=== PATIENT | female | born 1995 | race Caucasian/White ===

== ENCOUNTER 2020-04-05 13:04 | Outpatient (CLI) | payer OTHER ==
[2020-04-05 17:07] LABS: ALBUMIN 4.7 g/dL (3.2-5.5); ALBUMIN/GLOBULIN RATIO 1.4 (1.0-2.2); BILIRUBIN,TOTAL 0.8 mg/dL (0.2-1.0); CALCIUM 9.8 mg/dL (8.5-10.3); CREATININE 0.9 mg/dL (0.4-1.0)
[2020-04-05 17:12] LABS: HGB - HEMOGLOBIN 12.3 g/dL (12.0-16.0); MEAN CORPUSCULAR HEMOGLOBIN 28.9 pg (27.0-31.0); MEAN CORPUSCULAR HGB CONC 31.6 g/dL (32.0-36.0); MEAN CORPUSCULAR VOLUME 91.3 fL (81.0-99.0); MEAN PLATELET VOLUME 10.8 fL (7.9-10.8); RED BLOOD COUNT 4.26 10^6/uL (4.20-5.40); RED CELL DISTRIBUTION WIDTH 13.2 % (12.0-15.0); WHITE BLOOD COUNT 6.2 x10^3/uL (4.8-10.8)
[2020-04-05 17:31] LABS: PROLACTIN 14.29 ng/mL
[2020-04-05 17:54] LABS: FOLLICLE STIMULATING HORMONE 13.13 mIU/mL
[2020-04-05 21:01] LABS: HEMOGLOBIN A1c% 5.4 % (4.27-6.07)
[2020-04-08 04:11] LABS: ESTRADIOL 47 pg/mL
== END 2020-04-05 13:05 | disposition home or self-care (01) ==
LOC: LAB.S 13:04
PROVIDERS: ATTEND Obstetrics & Gynecology
DX: Z31.69 Encounter for other general counseling and advice on procreation (principal); N64.52 Nipple discharge; E28.2 Polycystic ovarian syndrome
CPT/HCPCS: 36415; 80053; 82306; 82670; 83001; 83036; 84146; 84403; 84443; 85027; 86762; 86787

== ENCOUNTER 2020-04-15 16:26 | Outpatient (CLI) | payer OTHER ==
--- NOTE | 2020-04-16 16:50 | Ultrasound Report ---
PROCEDURE: Pelvic w/Transvaginal INDICATIONS: POLYCYSTIC OVARIAN SYNDROME TECHNIQUE: Real-time scanning was performed of the pelvic organs, with image documentation. Additional endovagi nal scanning was necessary due to incomplete visualization of the adnexal and endometrial structures by transabdominal scanning. COMPARISON: Pelvic ultrasound 06/18/2013 FINDINGS: Transabdominal scanning: Limited scanning through the kidneys shows no hydronephrosis. No pathologi c free abdominal or pelvic fluid. Endovaginal scanning: Uterus: Uterus is normal in size at 7.5 x 3.0 x 4.2 cm. The endometrium measures 7 mm on the left a nd 10 mm on the right. Ovaries: Right ovary measures 3.0 x 1.3 x 2.5 cm, volume 5.1 cc. Left ovary measures 2.3 x 2.7 x 3.1 cm, volume 10.3 cc. Bilateral prominent follicles. IMPRESSION: 1. Arcuate uterus. 2. No ovarian cysts are identified. Reviewed by: Shital Chi MD on 04/16/2020 4:49 PM PDT Approved by: Shital Chi MD on 04/16/2020 4:49 PM PDT Station ID: [id number]
== END 2020-04-15 16:27 | disposition home or self-care (01) ==
LOC: DI 16:26
PROVIDERS: ATTEND Obstetrics & Gynecology
DX: E28.2 Polycystic ovarian syndrome (principal); Q51.810 Arcuate uterus
CPT/HCPCS: 76830; 76856

== ENCOUNTER 2021-05-25 17:30 | Outpatient (CLI) | payer OTHER | END 2021-05-25 17:31 | disposition home or self-care (01) | LOC: LAB 17:30 | PROVIDERS: ATTEND Obstetrics & Gynecology | DX: Z34.00 Encounter for supervision of normal first pregnancy, unspecified trimester (principal) | CPT/HCPCS: 81599; 82105 ==

== ENCOUNTER 2021-06-23 17:33 | Outpatient (CLI) | payer OTHER ==
--- NOTE | 2021-06-24 13:17 | Ultrasound Report ---
PROCEDURE: OB Detailed Eval INDICATIONS: SUPERVISION OF NORMAL OUTSIDE/PRIOR DATING DATA: Last menstrual period (LMP): 02/01/21. LMP-based estimated date of delivery (KIMBERLY): 11/08/21. First dating scan (date and location): 04/30/21. Estimated date of delivery (KIMBERLY) from first dating scan: 11/01/21. The below data below was generated using the ultrasound derived KIMBERLY of 11/01/21. TECHNIQUE: Real-time scanning was performed of the fetus, with image documentation and biometric measurements. COMPARISON: None. FINDINGS: General: A single living intrauterine gestation is present. Presentation: Breech Placenta: Placental position is posterior, without previa. Amniotic fluid index: 13.1 cm, within normal limits for gestational age. Largest pocket 4.5 cm. heart rate: 150 beats per minute. Maternal cervical canal: 3.8 cm long; normal length is 2.5 cm or more. biometrics: Biparietal diameter: 4.5 cm, 19 weeks 5 days Head circumference: 17.3 cm, 19 weeks 6 days Abdominal circumference: 16.4 cm, 21 weeks 3 days Femur length: 3.3 cm, 20 weeks 3 days Estimated gestational age from initial scan: 21 weeks 2 days Composite gestational age from present scan: 20 weeks 2 days Estimated weight and percentile: 378 g, 21st percentile Measurement variability in biometric dating: +/- 10 days from 12-20 weeks gestation, +/- 2 weeks from 20-30 weeks gestation, +/- 3 weeks at 30 weeks gestation or later. Anatomic survey: Neuro: Ventricles are normal at less than 10 mm. Cisterna magna is normal at 3-11 mm. Cerebellum i s normal in size and morphology. Nuchal skin fold: Normal at less than 6 mm between 14 and 20 weeks gestational age. Face: Nose and lips, facial profile are normal. Spine: Not well seen. Heart: 4-chambered heart is present, with normal ventricular outflow tracts. Diaphragm: Diaphragm was not well visualized. Stomach: Left-sided stomach is present. Kidneys: Kidneys not well visualized. Cord: 3 vessel cord has orthotopic insertion. Bladder: Normal in size. Extremities: All 4 extremities are visualized. IMPRESSION: 1. Single living intrauterine in breech position demonstrating interval growth with estimat ed weight at the 21st percentile. 2. Limited anatomic survey with the spine, diaphragm, and kidneys not well seen due to fe otis position. A follow-up repeat study may be performed to 4 weeks for further evaluation if clinical ly indicated. Reviewed by: Matthew Umanzor MD on 06/24/2021 1:16 PM PST Approved by: Matthew Umanzor MD on 06/24/2021 1:16 PM [facility] Station ID: [id number]
== END 2021-06-23 17:34 | disposition home or self-care (01) ==
LOC: DI 17:33
PROVIDERS: ATTEND Obstetrics & Gynecology
DX: O32.1XX0 Maternal care for breech presentation, not applicable or unspecified (principal); Z3A.20 20 weeks gestation of pregnancy

== ENCOUNTER 2021-07-30 08:00 | Outpatient (CLI) | payer OTHER ==
[2021-07-30 07:49] LABS: HCT - HEMATOCRIT 32.5 % (37.0-47.0); HGB - HEMOGLOBIN 10.8 g/dL (12.0-16.0); MEAN CORPUSCULAR HEMOGLOBIN 30.7 pg (27.0-31.0); MEAN CORPUSCULAR HGB CONC 33.2 g/dL (32.0-36.0); MEAN CORPUSCULAR VOLUME 92.3 fL (81.0-99.0); MEAN PLATELET VOLUME 9.5 fL (7.9-10.8); RED BLOOD COUNT 3.52 10^6/uL (4.20-5.40); RED CELL DISTRIBUTION WIDTH 12.7 % (12.0-15.0); WHITE BLOOD COUNT 9.9 x10^3/uL (4.8-10.8)
== END 2021-07-30 23:59 ==
LOC: LAB 08:00
PROVIDERS: ATTEND Obstetrics & Gynecology
DX: Z34.00 Encounter for supervision of normal first pregnancy, unspecified trimester (principal)
CPT/HCPCS: 36415; 82950; 85027

== ENCOUNTER 2021-08-06 07:57 | Outpatient (CLI) | payer OTHER ==
[2021-08-06 08:28] LABS: GTT GLUCOSE,FASTING 86 mg/dL (70-100)
== END 2021-08-06 07:58 | disposition home or self-care (01) ==
LOC: LAB 07:57
PROVIDERS: ATTEND Obstetrics & Gynecology
DX: O99.810 Abnormal glucose complicating pregnancy (principal)
CPT/HCPCS: 36415; 82951; 82952

== ENCOUNTER 2021-09-10 16:47 | Outpatient (CLI) | payer OTHER ==
[2021-09-10 22:48] LABS: CHLAMYDIA TRACHOMATIS DNA NEGATIVE (NEGATIVE); NEISSERIA GONORRHOEAE DNA NEGATIVE (NEGATIVE); TRICHOMONAS VAGINALIS DNA NEGATIVE (NEGATIVE)
== END 2021-09-10 16:48 | disposition home or self-care (01) ==
LOC: LAB 16:47
PROVIDERS: ATTEND Obstetrics & Gynecology
DX: Z11.3 Encounter for screening for infections with a predominantly sexual mode of transmission (principal)
CPT/HCPCS: 87491; 87591; 87661

== ENCOUNTER 2021-11-04 12:18 | Inpatient (IN) | payer OTHER ==
[2021-11-04] MEDS ORDERED: MORPHINE 10 MG/ML VIAL IM PRN (12:31)
[2021-11-04] MEDS ORDERED: hydrOXYzine PAMOATE 25 MG CAPSULE PO PRN (12:31)
[2021-11-04] MEDS ORDERED: TERBUTALINE 1 MG/ML VIAL SUBQ ONE (12:40)
[2021-11-04] MEDS ORDERED: PROMETHAZINE INJ 25 MG in SODIUM CHLORIDE 0.9% 50 ML IV PRN (12:43)
[2021-11-04] MEDS ORDERED: PROMETHAZINE 25 MG/1 ML VIAL IM STA (12:55)
[2021-11-04] MEDS ORDERED: PROMETHAZINE 25 MG/1 ML VIAL ONE (12:59)
[2021-11-04] MEDS ORDERED: ACETAMINOPHEN 500 MG TABLET PO PRN (17:00)
[2021-11-04] MEDS ORDERED: diphenhydrAMINE INJ 50 MG/ML VIAL IVP PRN ×2 (17:00→18:32)
[2021-11-04] MEDS ORDERED: METHYLERGONOVINE 0.2 MG/ML VIAL IM PRN (17:00)
[2021-11-04] MEDS ORDERED: METOCLOPRAMIDE 10 MG TABLET PO PRN (17:00)
[2021-11-04] MEDS ORDERED: NIFEdipine 10 MG CAPSULE PO PRN (17:00)
[2021-11-04] MEDS ORDERED: ONDANSETRON 4 MG/2 ML VIAL IVP PRN ×2 (17:00→18:32)
[2021-11-04] MEDS ORDERED: CALCIUM CARBONATE CHEW 500 MG TABLET PO PRN (17:00)
[2021-11-04] MEDS ORDERED: miSOPROStoL 200 MCG TABLET BC PRN (17:00)
[2021-11-04] MEDS ORDERED: hydrALAZINE INJ 20 MG/ML VIAL IVP PRN ×2 (17:00)
[2021-11-04] MEDS ORDERED: OXYTOCIN 10 UNIT/ML VIAL IM PRN (17:00)
[2021-11-04] MEDS ORDERED: LABETALOL 20 MG/4 ML SYRINGE IVP PRN ×3 (17:00)
[2021-11-04] MEDS ORDERED: fentaNYL 100 MCG/2 ML VIAL IVP PRN (17:00)
[2021-11-04] MEDS ORDERED: miSOPROStoL 200 MCG TABLET PR PRN (17:00)
[2021-11-04] MEDS ORDERED: TERBUTALINE 1 MG/ML VIAL SUBQ PRN (17:00)
[2021-11-04] MEDS ORDERED: SODIUM CHLORIDE FLUSH 0.9% 10 ML SYRINGE IVP SCH (17:00)
[2021-11-04] MEDS ORDERED: ONDANSETRON ODT 4 MG TABLET PO PRN (17:00)
[2021-11-04] MEDS ORDERED: OXYTOCIN/SODIUM CHLORIDE 500 ML IV PRN (17:00)
[2021-11-04] MEDS ORDERED: NALBUPHINE 10 MG/ML AMP IVP PRN ×2 (17:00→18:32)
[2021-11-04] MEDS ORDERED: CARBOPROST TROMETHAMINE 250 MCG/ML AMP IM PRN (17:00)
[2021-11-04] MEDS ORDERED: SODIUM CHLORIDE FLUSH 0.9% 10 ML SYRINGE IVP PRN (17:00)
[2021-11-04] MEDS ORDERED: TRANEXAMIC ACID IN NACL 1,000 MG/100 ML BAG IV PRN (17:00)
[2021-11-04] MEDS ORDERED: LIDOCAINE-MPF 1% 30 ML VIAL ID PRN (17:00)
[2021-11-04] MEDS ORDERED: METOCLOPRAMIDE 10 MG/2 ML VIAL IVP PRN ×2 (17:00→18:32)
--- NOTE | 2021-11-04 17:04 | HISTORY & PHYSICAL EXAMINATION ---
Admit History - Visit Reason Visit Reason: Contractions - Mother's Labs Mother's Blood Type: positive: A Mother's RH: positive: Positive GBS: positive: Group B Step Negative - Other Maternal History Other Maternal History: ID: Patient is a 26 yo at 39+3 wga that presents as a DARA from [facility] as a transfer of care for pain management in labor. HPI: Patient was seen by [facility] until about 32 weeks at which times she transferred to [facility]. She presented to [facility] this am with intense contractions lasting as much as 3 minutes in duration. She was initially 1 cm at presentation to the center and then progressed to about 2 cm in several hours of observation. Her provider at [facility], Aixa ROBERSON, requested patient present to [facility] for therapeutic rest. Patient received IM morphine and phenergan and went to sleep. She woke up 4 hours later in significant pain. She requested admission for epidural placement in early labor. SVE was 4/C/0 at time of admission. PNC: LMP:02/01/2021 KIMBERLY BY LMP:11/08/2021 Initial U/S: FINAL KIMBERLY: (Initial US perfomed at [place]- awaiting records) A pos/Rubella IMMUNE VZV : Pending Genetic testing: Has completed cfDNA. Awaiting records release. AFP mildly elevated. Cleared for ONTD by [facility] FAS: 3VC, posterior, FAS CL 3.5, FAS Glucola 07/30/21 157 08/06/21 3 hour Gtt fasting 86, 1hour 157, 2hour 117, 3hour 82 Passed TDAP : given 08/12/2021 Influenza: April 2021 Covid: Pfizer two doses completed by February 2021 [facility] HSV: Denies Breast pump Rx: Rx given MOD: anticipate pp contraception: TBD Pap: September 2020 w/Aleksandr Clay; normal. No hx abnormals. Past Medical History: Codeine - hallucinations Asthma-when smoking Past Surgical History: Unremarkable Family History: Family History of a Hx of Hypertension for Father Legacy Family History Notes: Father: HTN No family history of asthma. 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 LABOR: Expectant management -Augmentation with pitocin or AROM as indicated PAIN: -Patient initially seen in triage for therapeutic rest. Has since worn off and patient is in marked discomfort -Epidural to be placed upon admission FWB: Vertex, Cat I tracing, GBS neg, well grown MOD: Anticipate Admit for in-patient care Meds/Allgy - Allergies Allergies/Adverse Reactions: Allergies Allergy/AdvReac Type Severity Reaction Status Date / Time codeine AdvReac Hallucinati Verified 11/04/21 15:59 ons Physical - Abdominal Exam Vital Signs: Temp Pulse Resp BP Pulse Ox 97.9 F 95 16 134/80 H 11/04/21 12:33 11/04/21 12:33 11/04/21 12:33 11/04/21 12:33
[2021-11-04] MEDS: LACTATED RINGERS 1,000 ML IV SCH ×2 (17:44→21:52)
[2021-11-04] MEDS ORDERED: LACTATED RINGERS 1,000 ML ONE (17:47)
[2021-11-04] MEDS ORDERED: ROPIVACAINE 0.2% 200 MG/100 ML BAG EP ONE (18:02)
[2021-11-04 18:25] LABS: BASOPHILS % (AUTO) 0.2 %; HCT - HEMATOCRIT 36.2 % (37.0-47.0); HGB - HEMOGLOBIN 12.6 g/dL (12.0-16.0); LYMPHOCYTES # (AUTO) 1.3 10^3/uL (1.5-3.5); LYMPHOCYTES % (AUTO) 9.2 %; MEAN CORPUSCULAR HEMOGLOBIN 31.5 pg (27.0-31.0); MEAN CORPUSCULAR HGB CONC 34.8 g/dL (32.0-36.0); MEAN CORPUSCULAR VOLUME 90.5 fL (81.0-99.0); MEAN PLATELET VOLUME 11.7 fL (7.9-10.8); MONOCYTES # (AUTO) 0.7 10^3/uL (0.0-1.0); MONOCYTES % (AUTO) 4.8 %; NEUTROPHILS # (AUTO) 12.1 10^3/uL (1.5-6.6); NEUTROPHILS % (AUTO) 84.9 %; PLT - PLATELET COUNT 222 10^3/uL (130-450); RED CELL DISTRIBUTION WIDTH 13.5 % (12.0-15.0); WHITE BLOOD COUNT 14.3 x10^3/uL (4.8-10.8)
[2021-11-04] MEDS ORDERED: NALOXONE 0.4 MG/ML VIAL IVP PRN (18:32)
[2021-11-04] MEDS ORDERED: ROPIVACAINE 0.2% 200 MG/100 ML BAG EP PRN (18:32)
[2021-11-04] MEDS ORDERED: ePHEDrine 50 MG/ML VIAL IVP PRN (18:32)
[2021-11-04 18:34] LABS: ALBUMIN 3.1 g/dL (3.2-5.5); ALBUMIN/GLOBULIN RATIO 0.7 (1.0-2.2); BILIRUBIN,TOTAL 0.6 mg/dL (0.2-1.0); CALCIUM 9.8 mg/dL (8.5-10.3); CREATININE 0.7 mg/dL (0.4-1.0); POTASSIUM 3.4 mmol/L (3.5-5.0); TOTAL PROTEIN 7.3 g/dL (6.7-8.2)
--- NOTE | 2021-11-04 18:35 | ANESTHESIA ---
Pre-Anesthesia VS, & Labs - Diagnosis term labor, IUP - Procedure Vital Signs: Temp Pulse Resp BP Pulse Ox 36.6 C 95 16 134/80 H 11/04/21 12:33 11/04/21 12:33 11/04/21 12:33 11/04/21 12:33 Height: 5 ft 4 in - NPO Last Fluid Intake: t/o day Last Food Intake: lunch - Is Patient ?: Yes - Lab Results Current Lab Results: Laboratory Tests 11/04/21 17:35: WBC 14.3 H, RBC 4.00 L, Hgb 12.6, Hct 36.2 L, MCV 90.5, MCH 31.5 H, MCHC 34.8, RDW 13.5, Plt Count 222, MPV 11.7 H, Neut # (Auto) 12.1 H, Lymph # (Auto) 1.3 L, [place] # (Auto) 0.7, Eos # (Auto) 0.0, Baso # (Auto) 0.0, Absolute Nucleated RBC 0.00, Nucleated RBC % 0.0 Lab results reviewed: Yes Fish Bones: 11/04/21 17:35 Home Medications and Allergies Active Medications Acetaminophen (Acetaminophen 500 Mg Tablet) 1,000 mg PO Q8H PRN PRN Reason: Pain or Fever > 38C (100.4F) Calcium Carbonate/Glycine (Calcium Carbonate Chew 500 Mg Tablet) 1,000 mg PO Q6HR PRN PRN Reason: Heartburn Carboprost Tromethamine (Carboprost Tromethamine 250 Mcg/Ml Amp) 250 mcg IM .ONCE PRN PRN Reason: Hemorrhage Diphenhydramine HCl (Diphenhydramine Inj 50 Mg/Ml Vial) 25 mg IVP Q6H PRN PRN Reason: Allergy Symptoms Fentanyl (Fentanyl 100 Mcg/2 Ml Vial) 50 mcg IVP Q1H PRN PRN Reason: Severe Pain (score 7-10) Hydralazine HCl (Hydralazine Inj 20 Mg/Ml Vial) 5 - 20 mg IVP Q20M PRN; Protocol PRN Reason: SBP> or= 160 OR DBP> or= 110 Hydralazine HCl (Hydralazine Inj 20 Mg/Ml Vial) 10 mg IVP .ONCE PRN; Protocol PRN Reason: SBP> or= 160 OR DBP> or= 110 Hydroxyzine Pamoate (Hydroxyzine Pamoate 25 Mg Capsule) 50 mg PO .ONCE PRN PRN Reason: Persistent Prodromal Labor Promethazine HCl 25 mg/ Sodium (Chloride) 51 mls @ 100 mls/hr IV Q6H PRN PRN Reason: Nausea / Vomiting Oxytocin/Sodium Chloride (Pitocin/Sodium Chloride) 500 mls @ 999 mls/hr IV PRN PRN; Protocol PRN Reason: POST- HEMORR PREVENTION Tranexamic Acid (Tranexamic 1,000 Mg/100ml-Nacl) 1,000 mg in 100 mls @ 600 mls/hr IV Q30M PRN PRN Reason: EBL >1200mL and within 3hr Lactated Ringer's (Lr) 1,000 mls @ 125 mls/hr IV .Q8H TRENT Labetalol HCl (Labetalol 20 Mg/4 Ml Syringe) 20 - 80 mg IVP Q10M PRN; Protocol PRN Reason: SBP> or= 160 OR DBP> or= 110 Labetalol HCl (Labetalol 20 Mg/4 Ml Syringe) 20 mg IVP .ONCE PRN; Protocol PRN Reason: SBP> or= 160 OR DBP> or= 110 Labetalol HCl (Labetalol 20 Mg/4 Ml Syringe) 20 - 40 mg IVP Q10M PRN; Protocol PRN Reason: SBP> or= 160 OR DBP> or= 110 Lidocaine HCl (Lidocaine-Mpf 1% 30 Ml Vial) 30 ml ID ONCE PRN PRN Reason: PERINEAL REPAIR Stop: 11/05/21 17:01 Methylergonovine Maleate (Methylergonovine 0.2 Mg/Ml Vial) 0.2 mg IM .ONCE PRN PRN Reason: Hemorrhage Metoclopramide HCl (Metoclopramide 10 Mg Tablet) 5 mg PO Q6HR PRN PRN Reason: Nausea / Vomiting Metoclopramide HCl (Metoclopramide 10 Mg/2 Ml Vial) 5 mg IVP Q6HR PRN PRN Reason: Nausea / Vomiting Misoprostol (Misoprostol 200 Mcg Tablet) 600 mcg BC .ONCE PRN PRN Reason: Hemorrhage Misoprostol (Misoprostol 200 Mcg Tablet) 800 mcg ID .ONCE PRN PRN Reason: Hemorrhage Morphine Sulfate (Morphine 10 Mg/Ml Vial) 10 mg IM .ONCE PRN PRN Reason: Persistent Prodromal Labor Last Admin: 11/04/21 13:02 Dose: 5 mg Nalbuphine HCl (Nalbuphine 10 Mg/Ml Amp) 2.5 mg IVP Q2HR PRN PRN Reason: ITCHING Nifedipine (Nifedipine 10 Mg Capsule) 10 - 20 mg PO Q20M PRN; Protocol PRN Reason: SBP> or= 160 OR DBP> or= 110 Ondansetron HCl (Ondansetron Odt 4 Mg Tablet) 4 mg PO Q4HR PRN PRN Reason: Nausea / Vomiting Ondansetron HCl (Ondansetron 4 Mg/2 Ml Vial) 4 mg IVP PRN PRN PRN Reason: Nausea / Vomiting Oxytocin (Oxytocin 10 Unit/Ml Vial) 10 unit IM .ONCE PRN PRN Reason: Step One if no IV access. Sodium Chloride (Sodium Chloride Flush 0.9% 10 Ml Syringe) 10 ml IVP PRN PRN PRN Reason: NEEDED PER PROVIDER ORDERS Sodium Chloride (Sodium Chloride Flush 0.9% 10 Ml Syringe) 10 ml IVP Q8H TRENT Terbutaline Sulfate (Terbutaline 1 Mg/Ml Vial) 0.25 mg SUBQ .ONCE PRN PRN Reason: Tachystole Allergies/Adverse Reactions: Allergies Allergy/AdvReac Type Severity Reaction Status Date / Time codeine AdvReac Hallucinati Verified 11/04/21 15:59 ons Anes History & Medical History - Anesthetic History Anesthesia Complications: reports: No previous complications Family history of Anesthesia Complications: Denies Family history of Malignant Hyperthermia: Denies - Medical History Cardiovascular: reports: None Pulmonary: reports: None Gastrointestinal: reports: None Urinary: reports: None Neuro: reports: None Musculoskeletal: reports: None Endocrine/Autoimmune: reports: None Smoking Status: Never smoker Psychosocial: reports: No issues indicated History of Cancer?: No - Surgical History Other Past Surgical History: wisdom teeth extraction Exam General: Alert, Oriented x3, Cooperative Dental: WNL Neck Mobility: Normal Mallampati classification: II Respiratory: No respiratory distress Cardiovascular: Regular rate Neurological: Normal speech Mental/Cognitive Status: Alert/Oriented X3, Normal for patient Cognitive Status: Within normal limits Plan Anesthesia Type: Epidural Consent for Procedure(s) Verified and Reviewed: Yes Code Status: Attempt Resuscitation ASA classification: 2-Mild systemic disease Is this case an emergency?: No
[2021-11-05] MEDS ORDERED: OXYTOCIN/SODIUM CHLORIDE 500 ML IV SCH (02:00)
--- NOTE | 2021-11-05 03:30 | DELIVERY NOTE ---
Delivery Note - Labor Labor: positive: Spontaneous - Delivery Method Delivery Method: positive: Spontaneous vaginal delivery - Presentation Presentation: positive: Vertex, Compound, BROOKS - left occiput anterior - Nuchal Cord Nuchal Cord: positive: Present - Laceration Laceration: positive: 2nd degree, Other (partial involvement of anal sphincter) - Suture Suture Type: positive: Vicryl Suture Size: positive: 2-0, 3-0 - Delivery Outcome Delivery Outcome: positive: Livebirth - Merino: positive: Placed in direct skin contact with mother, Stimulated, Warmed, [place] used sex: positive: Female : Apgars 8/9 - Cord Cord: positive: 3 vessels - Placenta Placenta: positive: Intact, Expressed - Estimated Blood Loss Estimated Blood Loss (in cc): 150 - Post Delivery Events Post Delivery Events: positive: No post delivery events - Delivery Comments (Free Text/Narrative) Delivery Comments (Free Text/Narrative): STAGE I: Patient is a 26 yo admitted at 39+3 wga in labor with desire for pain management. SVE at time of admission was 4.5/C/+1 per RN exam. GBS negative. Epidural placed at admission. Spontaneous rupture of membranes at 22:51, clear fluid. GBS negative, no indication for antibiotics. Cat I tracing throughout Stage I labor. Complete at 22:51. STAGE II: Patient pushed well form 23:18 to time of delivery at 01:58. Second stage pitocin was used to augment labor. delivered from BROOKS presentation with compound presentation of the posterior (left hand). Nuchal cord present, delivered through the cord. Cord was wrapped around the body and was unwrapped upon delivery. was delivered to maternal chest. Cord pulsations ceased and then cord was clamped x2 and cut. Apgars were 8/9, BW pending. STAGE III: Placenta delivered at 02:05 with manual expression. It was examined and found to be intact. Perineal laceration was 2nd degree midline with involvement of the anal sphincter but sphincter remained intact. The sphincter muscle was reinforced using 2-0 Vicryl with interupted sutures placed at the posterior, superior, and anterior positions. Rectal exam post repair showed absence of suture in the rectal vault. The remainder of the laceration was repaired with 3-0 Vicryl in the usual sterile fashion, in layers. Good hemostasis was noted. EBL 150 cc
[2021-11-05] MEDS ORDERED: SIMETHICONE CHEW 80 MG TABLET PO PRN (03:31)
[2021-11-05] MEDS ORDERED: HYDROCORTISONE 1% CREAM 28 GM TUBE PR PRN (03:31)
[2021-11-05] MEDS: IBUPROFEN 600 MG TABLET PO PRN ×3 (05:34→18:39)
[2021-11-05] MEDS: ACETAMINOPHEN 500 MG TABLET PO PRN ×2 (10:07→18:39)
[2021-11-05] MEDS: DOCUSATE SODIUM 100 MG CAPSULE PO PRN ×2 (10:07→23:11)
[2021-11-05] MEDS: LACTATED RINGERS 1,000 ML IV SCH ×2 (19:02→19:03)
[2021-11-06] MEDS: IBUPROFEN 600 MG TABLET PO PRN ×2 (00:07→08:47)
[2021-11-06] MEDS: ACETAMINOPHEN 500 MG TABLET PO PRN ×2 (04:20→12:56)
[2021-11-06] MEDS: DOCUSATE SODIUM 100 MG CAPSULE PO PRN (08:47)
--- NOTE | 2021-11-06 12:11 | Discharge Plan ---
Discharge Plan Problem Reviewed?: Yes Disposition: Home, Self Care Condition: Good Prescriptions: Docusate Sodium 100Mg Capsule [Colace 100Mg Capsule] 100 - 200 mg PO BID PRN #60 cap PRN Reason: Constipation Diet: Regular Activity Restrictions: Additional Comments (see below) Shower Restrictions: Yes (see below) Additional Instructions or Follow Up instructions: Nothing in the vagina for 6 weeks: No intercourse, tampons, douching Call for: -Fever greater than 100.5 -Pain that does not improve with pain medication -Heavy bleeding in which you are soaking a pad an hour for 2 hours in a row -Pain in the legs (especially one sided), swelling in one leg and not the other, or difficulty/pain with breathing. No tub baths or hot tubs for 4 weeks DISCHARGE MEDICATIONS: Ibuprofen 600 mg by mouth every 6 hours as needed for pain Acetaminophen 500-1000 mg by mouth every 8 hours as needed for pain Docusate 100-200 mg by mouth twice a day as needed for constipation No Smoking: If you smoke, Please STOP! Call for help.
[2021-11-06 12:45] VITALS: BP 116/69
--- NOTE | 2021-11-06 13:51 | DISCHARGE SUMMARY ---
Discharge Summary Admit Date: 11/05/21 Discharge Date: 11/06/21 Discharging Provider: Janeth Code Status: Attempt Resuscitation Condition at Discharge: Good Discharge Disposition: 01 Home, Self Care - DIAGNOSES Admission Diagnoses: IUP at 39+3 wga Labor Desire for pain management Discharge Diagnoses with Status of Each Condition: same and delivery of term gestation - HPI History of Present Illness: Patient is a 26 yo at 39+3 wga that presents as a DARA from [facility] as a transfer of care for pain management in labor. HPI: Patient was seen by [facility] until about 32 weeks at which times she transferred to [facility]. She presented to [facility] this am with intense contractions lasting as much as 3 minutes in duration. She was initially 1 cm at presentation to the center and then progressed to about 2 cm in several hours of observation. Her provider at [facility], Aixa ROBERSON, requested patient present to [facility] for therapeutic rest. Patient received IM morphine and phenergan and went to sleep. She woke up 4 hours later in significant pain. She requested admission for epidural placement in early labor. SVE was 4/C/0 at time of admission. PNC: LMP:02/01/2021 KIMBERLY BY LMP:11/08/2021 Initial U/S: FINAL KIMBERLY: (Initial US perfomed at [place]- awaiting records) A pos/Rubella IMMUNE VZV : Pending Genetic testing: Has completed cfDNA. Awaiting records release. AFP mildly elevated. Cleared for ONTD by [facility] FAS: 3VC, posterior, FAS CL 3.5, FAS Glucola 07/30/21 157 08/06/21 3 hour Gtt fasting 86, 1hour 157, 2hour 117, 3hour 82 Passed TDAP : given 08/12/2021 Influenza: April 2021 Covid: Pfizer two doses completed by February 2021 GBS: negative per [facility] HSV: Denies Breast pump Rx: Rx given MOD: anticipate pp contraception: TBD Pap: September 2020 w/Aleksandr Clay; normal. No hx abnormals. - HOSPITAL COURSE Hospital Course: STAGE I: Patient is a 26 yo admitted at 39+3 wga in labor with desire for p ain management. SVE at time of admission was 4.5/C/+1 per RN exam. GBS negative. Epidural placed at admission. Spontaneous rupture of membranes at 22:51, clear fluid. GBS negative, no indication for antibiotics. Cat I tracing throughout Stage I labor. Complete at 22:51. STAGE II: Patient pushed well form 23:18 to time of delivery at 01:58. Second stage pitocin was used to augment labor. delivered from BROOKS presentation with compound presentation of the posterior (left hand). Nuchal cord present, delivered through the cord. Cord was wrapped around the body and was unwrapped upon delivery. Infant was delivered to maternal chest. Cord pulsations ceased and then cord was clamped x2 and cut. Apgars were 8/9, BW pending. STAGE III: Placenta delivered at 02:05 with manual expression. It was examined and found to be intact. Perineal laceration was 2nd degree midline with involv ement of the anal sphincter but sphincter remained intact. The sphincter muscle was reinforced using 2-0 Vicryl with interupted sutures placed at the posterior, superior, and anterior positions. Rectal exam post repair showed absence of suture in the rectal vault. The remainder of the laceration was repaired with 3- 0 Vicryl in the usual sterile fashion, in layers. Good hemostasis was noted. EBL 150 cc course was uncomplicated. Patient was discharged to home with routine instructions. - ALLERGIES Allergies/Adverse Reactions: Allergies Allergy/AdvReac Type Severity Reaction Status Date / Time codeine AdvReac Hallucinati Verified 11/04/21 15:59 ons - MEDICATIONS Home Medications: Ambulatory Orders Medication Instructions Recorded Confirmed Docusate Sodium 100Mg Capsule 100 - 200 mg PO BID PRN #60 cap 11/06/21 [Colace 100Mg Capsule] - PHYSICAL EXAM AT DISCHARGE General Appearance: positive: No acute distress Neck: positive: Nml inspection Respiratory: positive: No respiratory distress Cardiovascular: positive: Other (RR) Peripheral Pulses: positive: 2+ Abdomen: positive: Non-tender, Other (S&NT/ND, FF below umbi) Skin: positive: Color nml Extremities: positive: Non-tender, No pedal edema - LABS Result Diagrams: 11/04/21 17:35 11/04/21 17:35 - FOLLOW UP Follow Up: 1 week - TIME SPENT Time Spent in Discharge (Minutes): 30
--- NOTE | 2021-11-06 14:29 | Labor Flowsheet ---
Labor Flowsheet Datetime Report Generated by CPN: 11/06/2021 14:28 Datetime: 11/06/2021 12:37 VITAL SIGNS NBP Sys/Rut/Mean (mmHg): 116 : 69 : 79 Pulse: 88 Datetime: 11/05/2021 16:04 SpO2 (%): 94 Datetime: 11/05/2021 03:45 Pain Presence: None/Denies Datetime: 11/05/2021 02:01 MEDICATIONS Pitocin (milliunits): Increased to @ Medication Comments: PP pitocin wide open Datetime: 11/05/2021 01:59 Stage of : Recovery Datetime: 11/05/2021 01:58 UTERINE ACTIVITY Monitor Mode: External Frequency (min): 1.5-3 Quality: Strong Duration (sec): 50-70 Pattern: Normal: <= 5 Contractions in 10 Minutes Resting Tone (Palpate): Relaxed ASSESSMENT A Monitor Mode: Telemetry FHR Baseline Rate : 145 Variability: Moderate 6-25 bpm Accelerations: 15X15 Decelerations: Early; Late Actions for Decelerations: Blood Pressure Category: Category II Datetime: 11/05/2021 01:55 I/O Interventions: Andersen Discontinued Datetime: 11/05/2021 01:44 Pitocin Checklist: At Least 1 Acceleration of 15 bpm x 15 Seconds in 30 Minutes or Adequate Variabi lity; No More than 1 Late Deceleration Occurred in Past 30 Minutes; No More than 2 Variable Decelerat ions > 60 Seconds in Duration and decreasing >60 bpm in 30 minutes; No More than 5 Uterine Contractio ns in 10 Minutes for any 20 Minute Interval; Uterus Palpates Soft between Contractions LaborFlag: Labor Datetime: 11/05/2021 01:18 Temperature (C): 37.0 Datetime: 11/05/2021 01:15 Contraction Comments: Pitocin initiated per MD discussion with patient to help strengthen contracti ons Datetime: 11/05/2021 01:00 Comments: MD remains at bedside Datetime: 11/05/2021 00:20 Pushing Position: Pushing Right Side Pushing Progress: Perineal Bulging Datetime: 11/04/2021 23:51 Stage 2 Comments: closed knee Datetime: 11/04/2021 23:40 Monitor Interventions for FHR: Ultrasound Adjusted Patient Position/Activity: HOB Lowered Datetime: 11/04/2021 23:18 STAGE 2 Pushing: Coached on Pushing; Urge to Push Datetime: 11/04/2021 23:16 Patient Care Comments: andersen deflated Datetime: 11/04/2021 23:12 Strip Reviewed by: Dr. Kristalorley Provider Notified (Name): Dr. Kristalorley Datetime: 11/04/2021 23:05 Anesthesia Comments: new bag hung Datetime: 11/04/2021 22:55 COMMUNICATION Communication: RN at Bedside Communication Comments: Bedside report given to Emerald Kinjaltommy, SARA. Care taken over at this time. Datetime: 11/04/2021 22:51 VAGINAL EXAM Dilatation (cm): 10.0 Effacement (%): 100 Station: 1 Membrane Status: Ruptured Membranes Rupture Method: Spontaneous Amniotic Fluid Color: Clear Amniotic Fluid Odor: Normal Datetime: 11/04/2021 22:50 Pain Type: Pressure Datetime: 11/04/2021 22:27 Monitor Interventions for UA: [place] Adjusted Datetime: 11/04/2021 21:51 PATIENT CARE IV/Blood Work: New IV Bag Hung; IV Bag Number @ 2 Datetime: 11/04/2021 21:40 MATERNAL ASSESSMENT Level of Consciousness: Alert Headache: Denies Nausea/Vomiting: Denies Anesthesia Level Check: T8- Ribs Datetime: 11/04/2021 20:20 TEACHING Instructional Method: Verbal; Patient Instructed; Family/Support Person Instructed; Verbalized Unde rstanding Plan of Care: Vaginal Delivery Labor/Induction: Pushing Methods Datetime: 11/04/2021 19:56 Membranes Ruptured Date/Time: 11/04/2021 22:51 Amniotic Fluid Amount: Small Datetime: 11/04/2021 19:30 FHR Baseline Changes: No Baseline Change Datetime: 11/04/2021 19:25 Exam by: B. Messersmith, RN Cervix, Consistency: Soft Breath Sounds, Left: Clear and Equal Breath Sounds, Right: Clear and Equal Datetime: 11/04/2021 19:13 Pain Coping: Sleeping Datetime: 11/04/2021 19:00 Oxygen Method: Room Air Datetime: 11/04/2021 18:59 PAIN Pain Scale: 0 Pain Assessment Comments: Can only feel a little pressure in left groin Datetime: 11/04/2021 18:58 Respirations: 17 Datetime: 11/04/2021 18:46 Epidural Procedure Other: Redose Datetime: 11/04/2021 18:31 Pain Location: Abdomen; Back; Left Hip Comfort Measures: Breathing/Relaxation Datetime: 11/04/2021 18:21 Epidural Procedure: Completed Datetime: 11/04/2021 18:05 PROCEDURE TIME OUT Procedure Verify: Correct Patient Identity; Correct Side and Site are Marked; Accurate Procedure Co nsent Form; Agreement on Procedure to be Done; Correct Patient Position ANESTHESIA Anesthesia Plans: Epidural Epidural Positioning: Sitting
== END 2021-11-06 13:30 | disposition home or self-care (01) | DRG 807 ==
LOC: WFO 12:18 → FBP 12:19 → WFO 16:59 → FBP 17:00
PROVIDERS: ADMIT Obstetrics & Gynecology; ATTEND Obstetrics & Gynecology
PROC: 0KQM0ZZ Repair Perineum Muscle, Open Approach (ICD-10-PCS; principal; 2021-11-05)
PROC: 10E0XZZ Delivery of Products of Conception, External Approach (ICD-10-PCS; 2021-11-05)
DX: O70.1 Second degree perineal laceration during delivery (principal); Z37.0 Single live birth; O32.6XX0 Maternal care for compound presentation, not applicable or unspecified; O69.81X0 Labor and delivery complicated by cord around neck, without compression, not applicable or unspecified; Z3A.39 39 weeks gestation of pregnancy
CPT/HCPCS: 80053; 85025; 86850; 86900; 86901; 99215; A9270; J7120

== ENCOUNTER 2024-03-06 08:00 | Outpatient (CLI) | payer OTHER ==
--- NOTE | 2024-03-07 13:19 | XRAY Report ---
PROCEDURE: Cervical Spine 2-3V INDICATIONS: CERVICAL RADICULOPATHY TECHNIQUE: 3 view(s) of the cervical spine were acquired. COMPARISON: None. FINDINGS: Bones: No fractures or dislocations to the C7-T1 level. The lateral masses of C1 appear intact on t he odontoid view. No suspicious bony lesions. There is reversal of cervical curvature most prominen t at C4-5. There is trace retrolisthesis of C5 on C6. Mild disc space narrowing at C5-6. Soft tissues: No prevertebral soft tissue swelling. IMPRESSION: Reversal cervical curvature as above. Reviewed by: Shital Chi MD on 03/07/2024 1:17 PM PDT Approved by: Shital Chi MD on 03/07/2024 1:17 PM PDT Station ID: [id number]
== END 2024-03-06 23:59 | disposition home or self-care (01) ==
LOC: DI.S 08:00
PROVIDERS: ATTEND Registered Nurse
DX: M62.830 Muscle spasm of back (principal); R20.2 Paresthesia of skin; M54.12 Radiculopathy, cervical region; M54.2 Cervicalgia